=== PATIENT | female | born 1955 | race African-American/Black ===

== ENCOUNTER 2019-04-16 13:34 | Emergency (ER) | payer OTHER ==
[~2019-04-16] VITALS: Ht 157.5 cm; Wt 82.1 kg
[2019-04-16 14:15] VITALS: BP 151/76
[2019-04-16] MEDS ORDERED: IBUPROFEN 800 MG TAB PO ONE (16:00)
[2019-04-16] MEDS ORDERED: IBUPROFEN 600 MG TAB PO ONE (16:15)
== END 2019-04-16 17:14 | disposition home or self-care (01) ==
LOC: ER 13:40
DX: M25.512 Pain in left shoulder (principal); M54.5 Low back pain; E78.5 Hyperlipidemia, unspecified; I10 Essential (primary) hypertension; V89.2XXA Person injured in unspecified motor-vehicle accident, traffic, initial encounter; Y93.I9 Activity, other involving external motion; Y92.410 Unspecified street and highway as the place of occurrence of the external cause; Y99.8 Other external cause status
CPT/HCPCS: 73030